=== PATIENT | female | born 1950 | race Caucasian/White ===

== ENCOUNTER 2024-02-22 08:00 | Day surgery (SDC) | payer MEDICARE, OTHER ==
[2024-02-22] MEDS ORDERED: Sodium Chloride 0.9% 10 ML Syringe IV ONE (08:01)
[2024-02-22] MEDS ORDERED: Dexamethasone 4 MG/ML SDV IV ONE (08:01)
[2024-02-22] MEDS ORDERED: Midazolam 1 MG/ML 2 ML SDV IV ONE (08:01)
[2024-02-22] MEDS ORDERED: Acetaminophen/Codeine 300-30 MG Tab PO PRN (08:30)
[2024-02-22] MEDS ORDERED: Ondansetron 4 MG/2 ML SDV IVPUSH PRN (08:30)
[2024-02-22] MEDS ORDERED: Acetaminophen 325 MG Tab PO PRN (08:30)
[2024-02-22] MEDS: Sodium Chloride 0.9% 10 ML Syringe FLUSH PRN (08:40)
[2024-02-22] MEDS: Proparacaine 0.5% Ophth Soln 15 ML Bottle EYELF ONE ×2 (08:43→09:26)
[2024-02-22] MEDS: Povidone-Iodine 5% Sterile Ophth Soln 30 ML Bottle EYELF ONE ×2 (08:44→09:29)
[2024-02-22] MEDS: Moxifloxacin 0.5% Ophth Soln 3 ML Bottle EYELF ONE (08:44)
[2024-02-22] MEDS: Tropicamide 1% Ophth Soln 15 ML Bottle EYELF ONE (08:45)
[2024-02-22] MEDS: Cataract Ophth Solution EYELF ONE (08:46)
[2024-02-22] MEDS: Phenylephrine 10% Ophth Soln 5 ML Bot EYELF ONE (08:46)
[2024-02-22] MEDS: Timolol Maleate 0.5% Ophth Soln 5 ML Bottle EYELF ONE (08:46)
[2024-02-22] MEDS: Lidocaine 1% 30 ML SDV ONE (09:33)
[2024-02-22] MEDS: Vancomycin 500 MG SDV EYELF ONE (09:33)
[2024-02-22] MEDS: Apraclonidine 0.5% Ophth Soln 5 ML Bot EYELF ONE ×2 (09:34→09:42)
[2024-02-22] MEDS: Diclofenac Sodium 0.1% Ophth Soln 5 ML Bottle EYELF ONE ×2 (09:34→09:41)
[2024-02-22] MEDS: Dexamethasone/Neomycin/Polymyxin B Ophth Oint 3.5 GM Tube EYELF ONE ×2 (09:35→09:42)
== END 2024-02-22 10:30 | disposition home or self-care (01) ==
LOC: DL.SDS 08:00
PROVIDERS: ATTEND Ophthalmology
DX: H25.812 Combined forms of age-related cataract, left eye (principal); I10 Essential (primary) hypertension; E78.5 Hyperlipidemia, unspecified; E21.0 Primary hyperparathyroidism; F17.210 Nicotine dependence, cigarettes, uncomplicated; Z79.899 Other long term (current) drug therapy; Z88.8 Allergy status to other drugs, medicaments and biological substances
CPT/HCPCS: A9270-GY; J1100; J2250; J3370; J3490

== ENCOUNTER 2024-03-07 07:58 | Day surgery (SDC) | payer MEDICARE, OTHER ==
[2024-03-07] MEDS ORDERED: Dexamethasone 4 MG/ML SDV IV ONE (07:59)
[2024-03-07] MEDS ORDERED: Sodium Chloride 0.9% 10 ML Syringe IV ONE (07:59)
[2024-03-07] MEDS ORDERED: Midazolam 1 MG/ML 2 ML SDV IV ONE (07:59)
[2024-03-07] MEDS: Sodium Chloride 0.9% 10 ML Syringe FLUSH PRN (08:25)
[2024-03-07] MEDS ORDERED: Acetaminophen 325 MG Tab PO PRN (08:30)
[2024-03-07] MEDS ORDERED: Acetaminophen/Codeine 300-30 MG Tab PO PRN (08:30)
[2024-03-07] MEDS ORDERED: Ondansetron 4 MG/2 ML SDV IVPUSH PRN (08:30)
[2024-03-07] MEDS: Proparacaine 0.5% Ophth Soln 15 ML Bottle EYERT ONE ×2 (08:35→10:05)
[2024-03-07] MEDS: Moxifloxacin 0.5% Ophth Soln 3 ML Bottle EYERT ONE (08:37)
[2024-03-07] MEDS: Povidone-Iodine 5% Sterile Ophth Soln 30 ML Bottle EYERT ONE ×2 (08:37→10:05)
[2024-03-07] MEDS: Tropicamide 1% Ophth Soln 15 ML Bottle EYERT ONE (08:38)
[2024-03-07] MEDS: Phenylephrine 10% Ophth Soln 5 ML Bot EYERT ONE (08:38)
[2024-03-07] MEDS: Timolol Maleate 0.5% Ophth Soln 5 ML Bottle EYERT ONE (08:39)
[2024-03-07] MEDS: Cataract Ophth Solution EYERT ONE (08:40)
[2024-03-07] MEDS: Diclofenac Sodium 0.1% Ophth Soln 5 ML Bottle EYERT ONE (10:05)
[2024-03-07] MEDS: Dexamethasone/Neomycin/Polymyxin B Ophth Oint 3.5 GM Tube EYERT ONE (10:05)
[2024-03-07] MEDS: Apraclonidine 0.5% Ophth Soln 5 ML Bot EYERT ONE (10:06)
[2024-03-07] MEDS: Lidocaine 1% 30 ML SDV ONE (10:07)
[2024-03-07] MEDS: VANCOmycin 500 MG SDV EYERT ONE (10:08)
== END 2024-03-07 11:02 | disposition home or self-care (01) ==
LOC: DL.SDS 07:58
PROVIDERS: ATTEND Ophthalmology
DX: H25.811 Combined forms of age-related cataract, right eye (principal); E78.5 Hyperlipidemia, unspecified; I10 Essential (primary) hypertension; F17.210 Nicotine dependence, cigarettes, uncomplicated; Z79.899 Other long term (current) drug therapy
CPT/HCPCS: 66984; A9270; J3370; J1100; J2250; J3490